=== PATIENT | female | born 1980 | race Caucasian/White ===

== ENCOUNTER 2019-11-05 13:41 | Emergency (ER) | payer BC ==
[~2019-11-05] VITALS: Ht 152.4 cm; Wt 59.0 kg
--- OUTSIDE RECORDS SUMMARY | 2019-11-05 13:43 | XMS REPORT ---
[facility] Address Unknown Phone Unavailable Care Team Providers Care C.O.D. Biller Name Role Phone Unavailable Unavailable Payers Payer Name Policy Type Policy Number Effective Date Expiration Date Problems This patient has no known problems. Allergies, Adverse Reactions, Alerts Allergy Name Allergy Type Status Severity Reaction(s) Onset Date Inactive Date Treating Clinician Comments No Known Allergies DA Active U 2018-11-24 00:00:00 Medications This patient has no known medications. Results Test Description Test Time Test Comments Text Results Atomic Results Result Comments CBC W/AUTO DIFF 2018-11-28 05:33:00 WHITE BLOOD CELL (test code=WBC) 10.42 x10 3/uL 4.5-11.0 RED BLOOD CELL (test code=RBC) 3.23 x10 6/uL 3.54-5.02 HEMOGLOBIN (test code=HGB) 10.0 g/dL 11.0-15.0 HEMATOCRIT (test code=HCT) 28.6 % 33.0-45.0 MEAN CELL VOLUME (test code=MCV) 88.5 fL 81.0-99.0 MEAN CELL HGB (test code=MCH) 31.0 pg 27.0-33.0 MEAN CELL HGB CONCETRATION (test code=MCHC) 35.0 g/dL 33.0-37.0 RED CELL DISTRIBUTION WIDTH CV (test code=RDW) 13.2 % 11.5-14.5 RED CELL DISTRIBUTION WIDTH SD (test code=RDW-SD) 43.1 fL 37.0-54.0 PLATELET COUNT (test code=PLT) 136 x10 3/uL 150-400 MEAN PLATELET VOLUME (test code=MPV) 12.9 fL 7.0-9.0 NEUTROPHIL % (test code=NT%) 79.4 % 56.0-77.0 IMMATURE GRANULOCYTE % (test code=IG%) 0.5 % 0.0-2.0 LYMPHOCYTE % (test code=LY%) 13.6 % 14.0-32.0 MONOCYTE % (test code=MO%) 6.0 % 4.8-9.0 EOSINOPHIL % (test code=EO%) 0.3 % 0.3-3.7 BASOPHIL % (test code=BA%) 0.2 % 0.0-2.0 NUCLEATED RBC % (test code=NRBC%) 0.0 % 0-0 NEUTROPHIL # (test code=NT#) 8.28 x10 3/uL 2.0-7.6 IMMATURE GRANULOCYTE # (test code=IG#) 0.05 x10 3/uL 0.00-0.03 LYMPHOCYTE # (test code=LY#) 1.42 x10 3/uL 1.0-3.8 MONOCYTE # (test code=MO#) 0.62 x10 3/uL 0.1-0.8 EOSINOPHIL # (test code=EO#) 0.03 x10 3/uL 0.0-0.2 BASOPHIL # (test code=BA#) 0.02 x10 3/uL 0.0-0.2 NUCLEATED RBC # (test code=NRBC#) 0.00 x10 3/uL 0.0-0.1 MANUAL DIFF REQUIRED (test code=MDIFF) NO CORD ARTERIAL BLOOD [id number] 13:17:00* Test Item Value Reference Range Comments CORD BLOOD PH (test code=PH/C) 7.33 7.20-7.30 CORD BLOOD PCO2 (test code=PCO2/C) 38 MMHG 45-50 CORD BLOOD PO2 (test code=PO2/C) 21 mmHg 15-25 CORD BLOOD HCO3 (test code=HCO3/C) 20 mmol/L 15-25 BASE EXCESS CORD (test code=ELINA/C) -6.0 mmol/L -5-5 O2 SATURATION (test code=O2S/C) 32 % 25-45 RAPID PLASMA [id number] 10:51:00* Test Item Value Reference Range Comments RAPID PLASMA REAGIN (test code=RPR) NONREACTIVE NONREACTIVE AG HEPATITIS B [id number] 10:51:00* Test Item Value Reference Range Comments AG HEPATITIS B SURFACE (test code=HBSAG) NON REACTIVE INDEX NonReactive AB HIV 1 10:51:00* Test Item Value Reference Range Comments AB HIV 1 2 (test code=BRK08CE) NONREACTIVE INDEX NONREACTIVE RAPID PLASMA [id number] 20:20:00* Test Item Value Reference Range Comments RAPID PLASMA REAGIN (test code=RPR) NONREACTIVE AG HEPATITIS B [id number] 20:20:00* Test Item Value Reference Range Comments AG HEPATITIS B SURFACE (test code=HBSAG) NON REACTIVE INDEX NonReactive AB HIV 1 20:20:00* Test Item Value Reference Range Comments AB HIV 1 2 (test code=[id number]) NONREACTIVE INDEX NONREACTIVE RAPID PLASMA [id number] 19:45:00* Test Item Value Reference Range Comments RAPID PLASMA REAGIN (test code=RPR) NONREACTIVE AG HEPATITIS B [id number] 19:45:00* Test Item Value Reference Range Comments AG HEPATITIS B SURFACE (test code=HBSAG) NON REACTIVE INDEX NonReactive AB HIV 1 19:45:00* Test Item Value Reference Range Comments AB HIV 1 2 (test code=[id number]) INDEX NONREACTIVE CBC W/AUTO [id number] 18:27:00* Test Item Value Reference Range Comments WHITE BLOOD CELL (test code=WBC) 7.93 x10 3/uL 4.5-11.0 RED BLOOD CELL (test code=RBC) 4.14 x10 6/uL 3.54-5.02 HEMOGLOBIN (test code=HGB) 12.9 g/dL 11.0-15.0 HEMATOCRIT (test code=HCT) 36.3 % 33.0-45.0 MEAN CELL VOLUME (test code=MCV) 87.7 fL 81.0-99.0 MEAN CELL HGB (test code=MCH) 31.2 pg 27.0-33.0 MEAN CELL HGB CONCETRATION (test code=MCHC) 35.5 g/dL 33.0-37.0 RED CELL DISTRIBUTION WIDTH CV (test code=RDW) 13.2 % 11.5-14.5 RED CELL DISTRIBUTION WIDTH SD (test code=RDW-SD) 42.5 fL 37.0-54.0 PLATELET COUNT (test code=PLT) 157 x10 3/uL 150-400 MEAN PLATELET VOLUME (test code=MPV) 12.8 fL 7.0-9.0 NEUTROPHIL % (test code=NT%) 72.4 % 56.0-77.0 IMMATURE GRANULOCYTE % (test code=IG%) 0.5 % 0.0-2.0 LYMPHOCYTE % (test code=LY%) 17.8 % 14.0-32.0 MONOCYTE % (test code=MO%) 8.1 % 4.8-9.0 EOSINOPHIL % (test code=EO%) 0.9 % 0.3-3.7 BASOPHIL % (test code=BA%) 0.3 % 0.0-2.0 NUCLEATED RBC % (test code=NRBC%) 0.0 % 0-0 NEUTROPHIL # (test code=NT#) 5.75 x10 3/uL 2.0-7.6 IMMATURE GRANULOCYTE # (test code=IG#) 0.04 x10 3/uL 0.00-0.03 LYMPHOCYTE # (test code=LY#) 1.41 x10 3/uL 1.0-3.8 MONOCYTE # (test code=MO#) 0.64 x10 3/uL 0.1-0.8 EOSINOPHIL # (test code=EO#) 0.07 x10 3/uL 0.0-0.2 BASOPHIL # (test code=BA#) 0.02 x10 3/uL 0.0-0.2 NUCLEATED RBC # (test code=NRBC#) 0.00 x10 3/uL 0.0-0.1 MANUAL DIFF REQUIRED (test code=MDIFF) NO COMPREHENSIVE METABOLIC [id number] 12:39:00* Test Item Value Reference Range Comments SODIUM (test code=NA) 135 mEq/L 134-147 POTASSIUM (test code=K) 4.3 mEq/L 3.4-5.0 CHLORIDE (test code=CL) 107 mEq/L 100-108 CARBON DIOXIDE (test code=CO2) 21 mEq/L 21-33 ANION GAP (test code=GAP) 11 0-20 GLUCOSE (test code=GLU) 75 mg/dL 70-110 BLOOD UREA NITROGEN (test code=BUN) 9 mg/dL 7-18 GLOMERULAR FILTRATION RATE (test code=GFR) 113.1 105-110 Units of measure=ml/min/1.73 m2 CREATININE (test code=CREAT) 0.6 mg/dL 0.6-1.3 TOTAL PROTEIN (test code=PROT) 6.2 g/dL 6.4-8.2 ALBUMIN (test code=ALB) 2.50 g/dL 3.4-5.0 CALCIUM (test code=CA) 8.7 mg/dL 8.0-10.5 BILIRUBIN TOTAL (test code=BILT) 0.30 mg/dL 0.0-1.0 SGOT/AST (test code=AST) 23 IUnit/L 15-37 SGPT/ALT (test code=ALT) 19 IUnit/L 15-65 ALKALINE PHOSPHATASE TOTAL (test code=ALKP) 113 IUnit/L 20-125 URIC [id number] 12:39:00* Test Item Value Reference Range Comments URIC ACID (test code=URIC) 3.6 mg/dL 2.6-7.2 LACTIC DEHYDROGENASE(LDH)2018-11-24 12:39:00* Test Item Value Reference Range Comments LACTIC DEHYDROGENASE(LDH) (test code=LDH) 170 IUnits/L 84-246 COMPREHENSIVE METABOLIC [id number] 12:31:00* Test Item Value Reference Range Comments SODIUM (test code=NA) 135 mEq/L 134-147 POTASSIUM (test code=K) 4.3 mEq/L 3.4-5.0 CHLORIDE (test code=CL) 107 mEq/L 100-108 CARBON DIOXIDE (test code=CO2) 21 mEq/L 21-33 ANION GAP (test code=GAP) 11 0-20 GLUCOSE (test code=GLU) 75 mg/dL 70-110 BLOOD UREA NITROGEN (test code=BUN) 9 mg/dL 7-18 GLOMERULAR FILTRATION RATE (test code=GFR) 113.1 105-110 Units of measure=ml/min/1.73 m2 CREATININE (test code=CREAT) 0.6 mg/dL 0.6-1.3 TOTAL PROTEIN (test code=PROT) g/dL 6.4-8.2 ALBUMIN (test code=ALB) 2.50 g/dL 3.4-5.0 CALCIUM (test code=CA) 8.7 mg/dL 8.0-10.5 BILIRUBIN TOTAL (test code=BILT) mg/dL 0.0-1.0 SGOT/AST (test code=AST) 23 IUnit/L 15-37 SGPT/ALT (test code=ALT) 19 IUnit/L 15-65 ALKALINE PHOSPHATASE TOTAL (test code=ALKP) IUnit/L 20-125 URIC [id number] 12:31:00* Test Item Value Reference Range Comments URIC ACID (test code=URIC) 3.6 mg/dL 2.6-7.2 LACTIC DEHYDROGENASE(LDH)2018-11-24 12:31:00* Test Item Value Reference Range Comments LACTIC DEHYDROGENASE(LDH) (test code=LDH) IUnits/L 84-246 URINALYSIS [id number] 12:23:00* Test Item Value Reference Range Comments UA COLOR (test code=COLU) YELLOW YEL/STRAW UA APPEARANCE (test code=APPU) CLEAR CLEAR UA GLUCOSE DIPSTICK (test code=DGLUU) NEGATIVE NEGATIVE UA BILIRUBIN DIPSTICK (test code=BILU) NEGATIVE NEGATIVE UA KETONE DIPSTICK (test code=KETU) NEGATIVE NEGATIVE UA SPECIFIC GRAVITY (test code=SGU) 1.004 1.005-1.030 UA BLOOD DIPSTICK (test code=PETER) NEGATIVE NEGATIVE UA PH DIPSTICK (test code=MANA) 5.0 5.0-7.0 UA PROTEIN DIPSTICK (test code=PROU) NEGATIVE NEGATIVE UA UROBILINIOGEN DIPSTICK (test code=URO) 0.2 mg/dL 0.2-1.0 UA NITRITE DIPSTICK (test code=GIL) NEGATIVE NEGATIVE UA LEUKOCYTE ESTERASE DIPSTICK (test code=LEUU) NEGATIVE NEGATIVE UA WBC (test code=WBCU) 0-3 WBC/HPF 0-3 UA RBC (test code=RBCU) 0-3 RBC/HPF 0-3 UA BACTERIA (test code=BACU) NONE SEEN /HPF NONE SEEN UA SQUAMOUS CELLS (test code=SQU) 0-5 /HPF NONE SEEN UA MUCUS (test code=MUCU) TRACE /LPF NONE SEEN CBC W/AUTO [id number] 12:13:00* Test Item Value Reference Range Comments WHITE BLOOD CELL (test code=WBC) 8.68 x10 3/uL 4.5-11.0 RED BLOOD CELL (test code=RBC) 4.21 x10 6/uL 3.54-5.02 HEMOGLOBIN (test code=HGB) 13.0 g/dL 11.0-15.0 HEMATOCRIT (test code=HCT) 38.4 % 33.0-45.0 MEAN CELL VOLUME (test code=MCV) 91.2 fL 81.0-99.0 MEAN CELL HGB (test code=MCH) 30.9 pg 27.0-33.0 MEAN CELL HGB CONCETRATION (test code=MCHC) 33.9 g/dL 33.0-37.0 RED CELL DISTRIBUTION WIDTH CV (test code=RDW) 13.0 % 11.5-14.5 RED CELL DISTRIBUTION WIDTH SD (test code=RDW-SD) 43.3 fL 37.0-54.0 PLATELET COUNT (test code=PLT) 160 x10 3/uL 150-400 MEAN PLATELET VOLUME (test code=MPV) 12.6 fL 7.0-9.0 NEUTROPHIL % (test code=NT%) 77.0 % 56.0-77.0 IMMATURE GRANULOCYTE % (test code=IG%) 0.6 % 0.0-2.0 LYMPHOCYTE % (test code=LY%) 15.3 % 14.0-32.0 MONOCYTE % (test code=MO%) 6.5 % 4.8-9.0 EOSINOPHIL % (test code=EO%) 0.5 % 0.3-3.7 BASOPHIL % (test code=BA%) 0.1 % 0.0-2.0 NUCLEATED RBC % (test code=NRBC%) 0.0 % 0-0 NEUTROPHIL # (test code=NT#) 6.69 x10 3/uL 2.0-7.6 IMMATURE GRANULOCYTE # (test code=IG#) 0.05 x10 3/uL 0.00-0.03 LYMPHOCYTE # (test code=LY#) 1.33 x10 3/uL 1.0-3.8 MONOCYTE # (test code=MO#) 0.56 x10 3/uL 0.1-0.8 EOSINOPHIL # (test code=EO#) 0.04 x10 3/uL 0.0-0.2 BASOPHIL # (test code=BA#) 0.01 x10 3/uL 0.0-0.2 NUCLEATED RBC # (test code=NRBC#) 0.00 x10 3/uL 0.0-0.1 MANUAL DIFF REQUIRED (test code=MDIFF) NO
[2019-11-05] MEDS ORDERED: ONDANSETRON HCL INJ 2MG/ML 2ML 2 MG/ML VIAL IV STA (13:50)
[2019-11-05] MEDS ORDERED: KETOROLAC TROMETHAMINE 30 MG/ML VIAL IV STA (13:50)
[2019-11-05] MEDS ORDERED: CEFTRIAXONE SOD 1 GM/NS 50 ML 50 ML IV STA (13:50)
[2019-11-05] MEDS ORDERED: SODIUM CHLORIDE 0.9% 1000ML 1,000 ML IV STA (13:50)
[2019-11-05] MEDS ORDERED: MORPHINE SULFATE INJ 4 MG/ML INJ 1ML IV STA ×2 (13:50→14:28)
[2019-11-05 14:32] LABS: BASOPHILS % 0.4 % (0.0-1.0); EOSINOPHILS % 0.3 % (0.0-6.0); HEMATOCRIT 42.2 % (34.2-44.1); HEMOGLOBIN 14.4 g/dL (12.0-16.0); LYMPHOCYTES % 8.8 % (18.0-39.1); MEAN CORPUSCULAR HEMOGLOBIN 30.8 pg (28-32); MEAN CORPUSCULAR HGB CONC 34.1 g/dL (31-35); MEAN CORPUSCULAR VOLUME 90.2 fL (81-99); MONOCYTES # (AUTO) 0.4 (0.2-0.8); MONOCYTES % 3.6 % (4.4-11.3); NEUTROPHILS # (AUTO) 9.4 (2.1-6.9); NEUTROPHILS % 86.5 % (38.7-80.0); PLATELET COUNT 247 x10e3/uL (140-360); RED BLOOD COUNT 4.68 x10e6/uL (3.6-5.1); RED CELL DISTRIBUTION WIDTH 12.3 % (11.7-14.4)
[2019-11-05 15:00] LABS: ALANINE AMINOTRANSFERASE 13 IU/L (0-55); ALBUMIN 4.6 g/dL (3.5-5.0); ALBUMIN/GLOBULIN RATIO 1.6 (0.8-2.0); ALKALINE PHOSPHATASE 99 IU/L (40-150); ANION GAP 17.2 mmol/L (8-16); BLOOD UREA NITROGEN 18 mg/dL (7-26); BUN/CREATININE RATIO 21 (6-25); CALCIUM 9.7 mg/dL (8.4-10.2); CARBON DIOXIDE 22 mmol/L (22-29); CHLORIDE 102 mmol/L (98-107); CREATININE, SERUM 0.85 mg/dL (0.57-1.11); EST GLOMERULAR FILTRATION RATE > 60 ML/MIN (60-); GLUCOSE 109 mg/dL (74-118); POTASSIUM 4.2 mmol/L (3.5-5.1); SODIUM 137 mmol/L (136-145)
[2019-11-05 15:09] LABS: CLARITY,URINE CLEAR (CLEAR); COLOR,URINE YELLOW (YELLOW); LEUKOCYTE ESTERASE ,URINE NEGATIVE (NEGATIVE); NITRITE,URINE NEGATIVE (NEGATIVE); PROTEIN,URINE DIPSTICK NEGATIVE (NEGATIVE)
[2019-11-05 15:10] LABS: BACTERIA,URINE MODERATE /HPF; BILIRUBIN,URINE NEGATIVE (NEGATIVE); KETONES,URINE 2+ (NEGATIVE); RBC,URINE 0-5 /HPF (0-5); URINE UROBILINOGEN 0.2 mg/dL (0.2 - 1); WBC,URINE (MAN) 0-5 /HPF (0-5)
[2019-11-05 15:11] LABS: EPITHELIAL CELLS,URINE FEW /LPF
--- NOTE | 2019-11-05 15:24 | Diagnostic Imaging Report ---
EXAM: CT Abdomen and Pelvis WITHOUT intravenous contrast INDICATION: Flank pain COMPARISON: None. TECHNIQUE: Abdomen and pelvis were scanned utilizing a multidetector helical scanner from the lung base to the pubic symphysis without administration of IV contrast. Coronal and sagittal reformations were obtained. IV CONTRAST: None ORAL CONTRAST: None COMPLICATIONS: None RADIATION DOSE: Total DLP: 273 mGy*cm Dose modulation, iterative reconstruction, and/or weight based adjustment of the mA/kV was utilized to reduce the radiation dose to as low as reasonably achievable. FINDINGS: LOWER THORAX: Normal. HEPATOBILIARY: No focal hepatic lesions. No biliary ductal dilatation. The gallbladder appears unremarkable. SPLEEN: No splenomegaly. PANCREAS: No focal masses or ductal dilatation. ADRENALS: No adrenal nodules. KIDNEYS/URETERS: No hydronephrosis, stones, or solid mass lesions. PELVIC ORGANS/BLADDER: Unremarkable. PERITONEUM / RETROPERITONEUM: No free air or fluid. LYMPH NODES: No lymphadenopathy. VESSELS: Unremarkable. GI TRACT: No distention or wall thickening. BONES AND SOFT TISSUES: Unremarkable. IMPRESSION: No acute findings in the abdomen or pelvis. Specifically, no hydronephrosis or renal calculi. Signed by: Leticia Shetty MD on 11/05/2019 3:20 PM
[2019-11-05 15:45] VITALS: BP 121/86
== END 2019-11-05 15:53 | disposition home or self-care (01) ==
LOC: ER 13:41
DX: R10.9 Unspecified abdominal pain (principal)
CPT/HCPCS: 36415; 74176; 80053; 81001; 84702; 85025; 87086; 99284; J0696; J1885; J2270; J2405; J7030

== ENCOUNTER 2022-04-03 09:36 | Outpatient (RCR) | payer BC | END 2022-04-10 | LOC: PT 09:36 | PROVIDERS: ATTEND Specialist | DX: M22.2X1 Patellofemoral disorders, right knee (principal); M25.561 Pain in right knee; M62.81 Muscle weakness (generalized); R26.2 Difficulty in walking, not elsewhere classified ==